=== PATIENT | male | born 1975 | race Two or more races ===

== ENCOUNTER 2017-07-05 11:42 | Outpatient (CLI) ==
--- NOTE | 2017-07-05 12:06 | DI ---
Exam: Three x-rays of the lumbar spine. Comparison: None available. Reason for exam: Pain. FINDINGS: No acute fracture or malalignment. Mild degenerative disease is seen in the lumbar spine. There is relative maintenance of the lumbar lordotic curve. Impression: No acute fracture or listhesis in the lumbar spine with mild degenerative disease
== END 2017-07-05 11:43 | disposition home or self-care (01) ==
LOC: RAD 11:42
PROVIDERS: ATTEND Internal Medicine
DX: M54.9 Dorsalgia, unspecified (principal)